=== PATIENT | male | born 1995 | race Asian ===

== ENCOUNTER 2017-08-22 02:16 | Emergency (ER) | payer OTHER ==
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
[2017-08-22 03:14] LABS: ABS Basophils 0.1 10^3/ul (0-0.2); ABS Eosinophils 0.1 10^3/ul (0-0.6); ABS Lymphocytes 4.6 10^3/ul (1.0-4.8); ABS Monocytes 0.5 10^3/ul (0-0.8); ABS Neutrophils 3.6 10^3/ul (1.5-7.7); ABS Nucleated RBC 0 10^3/ul; Hematocrit 46 % (42-52); Hemoglobin 16.1 g/dl (14.0-18.0); Lymphocyte % 52.3 % (25-47); Mean Corpuscular HGB Conc 35 g/dl (31-36); Mean Corpuscular Hemoglobin 33 pg (27-31); Mean Corpuscular Volume 94 fL (80-94); Mean Platelet Volume 8.8 um3 (7.4-10.4); Nucleated Red Blood Cells % 0.1; Platelet Count 203 10^3/ul (150-450); Red Blood Count 4.87 10^6/ul (4.00-5.40); Red Cell Distribution Width 12 % (10.5-15); White Blood Count 8.9 10^3/ul (3.5-10.8)
[2017-08-22 03:28] LABS: EGFR Non-African American 87.5 (>60)
[2017-08-22 05:48] VITALS: BP 121/77
== END 2017-08-22 05:47 | disposition home or self-care (01) ==
LOC: ED 02:16
DX: T54.2X1A Toxic effect of corrosive acids and acid-like substances, accidental (unintentional), initial encounter (principal); T23.402A Corrosion of unspecified degree of left hand, unspecified site, initial encounter; Y93.9 Activity, unspecified; Y92.214 College as the place of occurrence of the external cause
CPT/HCPCS: 36415; 80048; 83735; 85025; 93005; 99282